=== PATIENT | female | born 1930 | race Caucasian/White ===

== ENCOUNTER 2017-09-02 10:30 | Emergency (ER) | payer MEDICARE ==
[~2017-09-02] VITALS: Ht 154.9 cm; Wt 87.1 kg
[2017-09-02 12:50] VITALS: BP 138/72
== END 2017-09-02 12:53 | disposition home or self-care (01) ==
LOC: ER 10:30
DX: B02.9 Zoster without complications (principal); I10 Essential (primary) hypertension; E11.9 Type 2 diabetes mellitus without complications; E66.9 Obesity, unspecified
CPT/HCPCS: 99283